=== PATIENT | male | born 1980 | race Two or more races ===

== ENCOUNTER 2019-07-04 05:45 | Emergency (ER) | payer BC, MEDICAID ==
[~2019-07-04] VITALS: Ht 170.2 cm; Wt 100.2 kg
[2019-07-04 07:29] VITALS: BP 143/91
== END 2019-07-04 07:36 ==
LOC: ER 05:45
DX: M54.2 Cervicalgia (principal); M25.511 Pain in right shoulder; Z02.89 Encounter for other administrative examinations; V43.52XA Car driver injured in collision with other type car in traffic accident, initial encounter; Y93.89 Activity, other specified; Y99.8 Other external cause status; Y92.410 Unspecified street and highway as the place of occurrence of the external cause